=== PATIENT | male | born 2000 | race Caucasian/White ===

== ENCOUNTER 2021-02-27 16:27 | Emergency (ER) | payer OTHER, MEDICAID, SELFPAY ==
[2021-02-27 16:38] VITALS: BP 159/82; PULSE 67; RESP 18; TEMP 36.9; O2SAT 99; BMI 39.1
[2021-02-27 18:39] VITALS: BP 133/88; PULSE 59; RESP 16; TEMP 37.2; O2SAT 100
--- NOTE | 2021-02-27 18:48 | ED.SKABFB ---
HPI - Skin/Abscess/Foreign Bdy General Chief complaint: Skin/Abscess/Foreign Body Stated complaint: poison indira Time Seen by Provider: 02/27/21 18:48 Source: patient Mode of arrival: ambulatory Limitations: no limitations History of Present Illness HPI narrative: 20-year-old male with no significant past medical history presents with poison indira to his arms, legs, and face. Has been using calamine lotion with poor effect. He does not report any other symptoms. MD complaint: rash Onset (ago): day(s) Tetanus up to date: yes Location: face, LUE, RUE, LLE and RLE Severity: moderate Severity scale (1-10): 7 Quality: burning Pain Consistency: constant Relieving factors: topical medication Exacerbating factors: palpation and movement Context: none Associated symptoms: denies other symptoms Treatments prior to arrival: OTC topical medication Related Data Previous Rx's Medication Instructions Recorded prednisone 10 mg tablet 10 mg PO DAILY #40 tab 02/27/21 Allergies Allergy/AdvReac Type Severity Reaction Status Date / Time No Known Allergies Allergy Verified 02/27/21 16:42 Review of Systems Review of Systems: Constitutional: No Fever, No Chills ENT/Mouth: No Ear Pain, No Hoarseness, No sore throat Eyes: No Eye Pain, No Swelling, No Redness, No Foreign Body Cardiovascular: No Chest Pain, No SOB Respiratory: No Cough, No Dyspnea Gastrointestinal: No Nausea, No Vomiting, No Diarrhea, No abdominal Pain Genitourinary: No Dysuria, No Hematuria Musculoskeletal: No joint pain, No Myalgias, No Joint Swelling Skin: Positive vesicular rash to arms and legs and face, No Skin lacerations, No rash Neuro: No Weakness, No Numbness, No Paresthesias, No Loss of Consciousness, No Dizziness, No Headache Psych: No Anxiety/Panic, No Depression Heme/Lymph: no easy bruising, no Lymphadenopathy Endocrine: No Polyuria, No Polydipsia Yes all other systems are reviewed and are negative FOR[facility]LY [facility] Past Medical History Attestation statement: The following information was validated with the patient. Source: old records reviewed Medical History (Updated 02/27/21 @ 19:02 by Juliette Polanco NP) No acute medical problems Surgical History No history of previous surgery Social History Social History Advance Directives: No Advance Directives Information Provided: No Physical Exam Vital Signs: Vital Signs: Last Vital Signs Temp 98.9 F 02/27/21 18:39 Pulse 59 02/27/21 18:39 Resp 16 02/27/21 18:39 BP 133/88 02/27/21 18:39 Pulse Ox 100 02/27/21 18:39 Body Mass Index 39.1 Appearance: Alert. Oriented X3. No acute distress. Eyes: Pupils equal, round and reactive to light. ENT: Pharynx normal. Neck: Normal inspection. Neck supple. CVS: Normal heart rate and rhythm. Pulses normal. Respiratory: No respiratory distress. Breath sounds normal. Abdomen: Soft and nontender. Skin: Vesicular rash consistent with poison indira contact dermatitis on arms, legs, and face, Skin warm and dry. Normal skin color. Normal skin turgor. Extremities: No lower extremity edema. Neuro: No motor deficit. No sensory deficit. Cranial nerves 2-12 intact MDM - Skin/Abscess/Foreign Bdy Differential Diagnosis Differential diagnosis: Likely abscess of skin or subcutaneous tissue Medical Records Attestation: I reviewed the patient's medical records. Discharge Plan Discharge Clinical Impression: Poison indira dermatitis Patient Disposition: Home, Self-Care Instructions: Poison Indira (ED) Additional Instructions: You were evaluated for a rash consistent with poison indira, after a known poison indira exposure. Please take prednisone on a daily basis. Follow the directions on the prednisone taper. Continues calamine lotion or any [id number] medications that help alleviate your itching. You may consider using Benadryl 25-50 mg every 6-8 hours as needed for itching. Thank you for choosing this emergency department for evaluation. Please follow-up with primary care physician as needed. Return to the emergency department for any new, concerning, or worsening symptoms. Prescriptions: New prednisone 10 mg tablet 10 mg PO DAILY Qty: 40 RF: 0 Interventions: ED Discharge Assessment Last Done: 02/27/21 19:09 Discharge Date/Time: 02/27/21 19:12
[2021-02-27] MEDS: predniSONE 20 MG TABLET 60 MG PO (19:08)
== END 2021-02-27 19:12 | disposition home or self-care (01) ==
PROVIDERS: Emergency Provider Internal Medicine
DX: L23.7 Allergic contact dermatitis due to plants, except food (principal)
CPT/HCPCS: 99283; 99284